=== PATIENT | female | born 1940 | race Caucasian/White ===

== ENCOUNTER 2017-06-19 11:28 | Inpatient (IN) | payer OTHER ==
[~2017-06-19] VITALS: Ht 157.5 cm; Wt 66.7 kg
--- NOTE | ~2017-06-19 | CATHLAB ---
[facility] [address] [place] [address] INVASIVE PROCEDURE REPORT Name: ADARSH KIM Room #: 219-P [facility] IN ..#: [id number] Admission: 06/19/17 Attend Phys: Deangelo Matias Discharge: Date of : 38 Date of Service: 06/20/172010 Report #: [id number] THIS REPORT FOR: //name// APPROVED REPORT Patient Details Patient Status: In-Patient Room #: The patient is a 76 year-old female Event Personnel Berlin Cao Food Taster, Eliazar Brumfield RN, Esperanza Griffith, Faith Claros RN Monitor Procedures Performed Left Heart Cath Coronaries, Bypass Grafts [id number] CCORCABG Art Access - R femoral artery* Hemostasis w/ Mynx Indication Non-STEMI , Chest pain Risk Factors Arterial Hypertension, Coronary Artery Disease Previous Procedures/Diagnoses Previous CABG Procedure Narrative The patient was brought electively to the Cardiac Catheterization Laboratory and was prepped and draped in a sterile manner. The Right Groin^ was infiltrated with 1% Lidocaine subcutaneous anesthesia. A PINNACLE 6FR Sheath #[id number] sheath was inserted into the right femoral artery. Coronary angiography was performed using coronary diagnostic catheters. The right coronary system was accessed and visualized with a 6FR JR 4 #[id number] catheter. The left coronary system was accessed and visualized with a 6FR JL4 #[id number] catheter. The left ventricle was accessed and visualized with a 6FR PIGTAIL 145 ANGLED #[id number] catheter. Left ventricular/Aortic Valve gradient assessed via catheter pullback. Left ventriculogram was performed in SMITH projection. Closure device was deployed with a 6 Fr Mynx. The patient tolerated the procedure well and there were no complications associated with the procedure. There was no hematoma. Fluoro Time: 4.30 minutes Dose: DAP 4332.60 cGycm2 449 mGy Contrast Type and Amount: Omnipaque 100 ml [facility] [place] [address] INVASIVE PROCEDURE REPORT Name: ADARSH KIM Room #: 219-P [facility] IN [facility]#: [id number] Admission: 06/19/17 Attend Phys: Deangelo Matias Discharge: Date of : 38 Date of Service: 06/20/172010 Report #: [id number] Coronary Angiography The patient's coronary anatomy is right dominant. [place] Artery Percent Stenosis Left Main: 70 % Prox LAD: 0 % Mid/Distal LAD: 0 % Circumflex: 0 % RCA: 0 % Ramus: %left main artery had an eccentric ostial 70% stenosis. LAD had no competitive flow from the SUNG graft. Grafts (Complete if Previous CABG=Yes: Percent Stenosis) SUNG graft appearred chronically occluded proximally. Free radial artery graft was widely patent to the marginal branch of the circumflex. Left Ventriculography The left ventricle is mildly dilated in size with contractility. The left ventricular ejection fraction is estimated to be 30-35%. Left ventricular wall motion abnormalities are present. There is no mitral insufficiency. Akinesis noted of the mid and distal anteior wall, distal inferior wall, and entire apex compatible with apical ballooning syndrome. Hemodynamics The aortic pressure is 109/68 mmHg with a mean of 86 mmHg. The left ventricular pressure is 120/20 mmHg with a mean of mmHg. The left ventricular end diastolic pressure is 37 mmHg. There was no gradient across the aortic valve upon pullback. Pullback from the left ventricle to the aorta revealed no gradient across the aortic valve. Conclusion 1. 70% stenosis of the left main artery. 2. 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 Patent free radial artery graft to the marginal branch of the circumflex 4. Ventriculogram consistent with apical ballooning syndrome Recommendations Aggressive Medical Therapy <ELECTRONICALLY SIGNED> By: Berlin Cao MD, FACC 06/20/172010 10 10 Berlin Cao MD, FACC /INF
--- NOTE | ~2017-06-19 | HC ---
[facility] [address] [place] [address] CONSULTATION Name: ADARSH KIM Room #: 219-P [facility] IN M.R.#: [id number] Admission: 06/19/17 Attend Phys: Deangelo Serna Discharge: Date of : 38 Report #: [id number] THIS REPORT FOR: //name// CC: Deangelo Whiting MD DATE OF SERVICE: 06/19/2017 HISTORY OF PRESENT ILLNESS: The patient is a 76-year-old single white female who I was asked to see in the hospital today after she complained of chest pain. The patient apparently presented in 2003 with chest pressure. She was found to have coronary artery disease involving the left main artery. She underwent 2-vessel bypass surgery here at [facility] including a SUNG graft to the LAD and a free left radial artery bypass graft to the circumflex artery. She has actually done well since that time. The patient stays fairly active doing aerobics. She was actually doing well until few weeks ago, she was at home, she felt a pressure chest and vomited. She called an EMS and was taken to the [facility]. She apparently ruled out for myocardial infarction. She apparently had a CT scan of the chest that was unremarkable. She actually saw my partner, Dr. Duarte in the clinic a week later. He recommended a nuclear stress test. Recently, she fatigued. Today, she showed up in my [facility] office for her stress test. While imaging, she felt a pressure chest, short of breath, and nauseated. She was given nitroglycerin. Paramedics were called. She was transferred by ambulance from my office to the emergency room here. She continued to have some chest pressure. She has had a recent bleeding, fever, cough, and blood in her stool. She denied any exertional dyspnea, palpitations, or syncope. I was asked to see her for further evaluation and treatment. PAST MEDICAL HISTORY: Significant for carpal tunnel surgery, cholecystectomy, hernia repair, hysterectomy, hypertension, and hyperlipidemia. No diabetes. MEDICATIONS: Consist of Fosamax, aspirin, Lipitor, Cardizem CD, hydrocodone for chronic knee pain, Imdur, metoprolol, and omeprazole. ALLERGIES: She has an allergy to SULFA and CODEINE. FAMILY HISTORY: Her mother had heart disease. SOCIAL HISTORY: She is , lives with a sister in [place], [place]. No smoking or alcohol abuse. REVIEW OF SYSTEMS: She has had no history of stroke. She did have a previous carotid Doppler study showing mild plaque formation. She has no history of asthma, peptic ulcer disease, liver disease, kidney disease, cancer, [place] [address] CONSULTATION Name: JUDYADARSH Rich Room #: 219-P [facility] IN M.R.#: [id number] Admission: 06/19/17 Attend Phys: Deangelo Serna Discharge: Date of : 38 Report #: [id number] psychiatric illness. PHYSICAL EXAMINATION: GENERAL: Revealed an elderly female, lying in bed. She appeared in no distress. VITAL SIGNS: She had a blood pressure of 140/70, pulse 60. She is afebrile. HEENT: She was anicteric, conjunctiva pink. Mucous membranes moist. NECK: Veins nondistended. No carotid bruits. Neck was supple. CHEST: Clear to auscultation. HEART: Regular rate and rhythm. ABDOMEN: Soft and nontender. EXTREMITIES: Had no edema. Dorsalis pedis pulse 2+ in the right, cannot be palpated on the left. SKIN: Cool and dry. NEUROLOGIC: Nonfocal. Her ECG showed a sinus rhythm with septal Q-waves, nonspecific ST-segment changes. Her workup in the emergency room today, she had a chest x-ray that showed tortuous aorta, hiatal hernia, otherwise clear lung maldonado. Her lab work, sodium 134, creatinine 0.9. Troponin was 0.89. White blood cell count 8.8, hemoglobin 15.1. IMPRESSION AND RECOMMENDATIONS: 1. Non-ST elevation myocardial infarction. Recommend cardiac catheterization. 2. Hypertension. The patient has been on a calcium melissa and beta melissa. 3. Hyperlipidemia. The patient is on a statin drug. 4. Chronic back pain. The patient takes narcotics. <ELECTRONICALLY SIGNED> By: Berlin Cao MD, FACC 06/20/17 0811 1726 0001 Berlin Cao MD, FACC /nt
--- NOTE | ~2017-06-19 | EKG ---
[place] [address] [facility] [place] [address] ELECTROCARDIOGRAM REPORT Name: ADARSH KIM Room #: 219-P AD[facility] IN M.R.#: [id number] Admission: 06/19/17 Attend Phys: Deangelo Serna Discharge: Date of : 38 Report #: [id number] THIS REPORT FOR: //name// [facility] ED Test Date: 2017-06-19 Test Time: 11:30:58 Pat Name: ADARSH KIM Department: Room: 219 Gender: F Program Writer: BLAKE : 1940 Requested By: Shey Huggins Order Number: [id number] MD: Matt Carr Measurements Intervals [place] Rate: 63 P: 20 WY: 173 QRS: 27 QRSD: 121 T: 29 QT: 432 QTc: 443 Interpretive Statements Sinus rhythm Nonspecific T wave abnormality Anteroseptal infarct, old Compared to ECG 01/30/2009 07:46:27 Septal Q waves are now present Nonspecific T wave abnormality is now noted Electronically Signed On 06-20-2017 7:48:45 CDT by Matt Carr [email or web address] <ELECTRONICALLY SIGNED> By: Matt Carr MD, [facility] 06/20/17 0748 1130 1130 Matt Carr MD, [facility] /EPI
[2017-06-19 11:31] VITALS: BP 152/101
[2017-06-19 11:44] LABS: ABSOLUTE NEUTROPHILS 5.1 thou/uL (1.4-8.2); BASOPHILS 0.5 % (0.0-2.0); EOSINOPHILS 6.4 % (0.0-3.0); HEMATOCRIT 43.8 % (37.0-47.0); HEMOGLOBIN 15.1 gm/dL (12.0-15.0); LYMPHOCYTES 26.6 % (24.0-44.0); MANUAL DIFF NO; MCH 33.2 pg (26.0-34.0); MCHC 34.6 g/dL (28.0-37.0); MONOCYTES 8.1 % (1.0-8.0); PLATELET COUNT 195 thou/uL (150-400); POLYS 58.4 % (36.0-66.0); RBC 4.56 mil/uL (4.20-5.00); RDW 13.5 % (10.5-14.5); WBC 8.8 thou/uL (4.0-11.0)
[2017-06-19 12:03] LABS: APTT 26.9 Seconds (24.5-32.8); INR 1.1; PROTIME 10.9 Seconds (9.3-11.4)
[2017-06-19 12:36] LABS: CREATININE 0.9 mg/dL (0.6-1.0); POTASSIUM 3.8 mmol/L (3.5-5.1)
[2017-06-19 12:50] LABS: TROPONIN-I 0.89 ng/mL (<0.04-0.07)
[2017-06-19 13:33] VITALS: BP 130/71
[2017-06-19 14:32] VITALS: BP 130/71
[2017-06-19 14:40] VITALS: BP 132/81
[2017-06-19] MEDS ORDERED: CARDIZEM CD240 MG PO (14:52)
[2017-06-19] MEDS ORDERED: LIPITOR10 MG PO (14:54)
[2017-06-19] MEDS ORDERED: OMEPRAZOLE40 MG PO (14:55)
[2017-06-19] MEDS ORDERED: ASPIR 8181 M1 PO (14:57)
[2017-06-19] MEDS ORDERED: IMDUR 30 MG TAB30 M1 PO (14:57)
[2017-06-19] MEDS ORDERED: LOPRESSOR50 PO (14:59)
[2017-06-19] MEDS ORDERED: FOSAMAX 70 MG T70 MG PO (14:59)
[2017-06-19] MEDS ORDERED: PROBIOTIC1 EAC1 PO (15:00)
[2017-06-19] MEDS ORDERED: VITAMINC500 PO (15:01)
[2017-06-19] MEDS ORDERED: VITAMIN D1000 UNI1 PO (15:05)
[2017-06-19] MEDS ORDERED: UNICOMPLEX M TA1 TA1 PO (15:05)
[2017-06-19] MEDS ORDERED: ZYRTEC 10 MG TA10 MG PO (15:07)
[2017-06-19] MEDS ORDERED: NITROGLYCERIN0.4 MG SUBLING (15:09)
[2017-06-19 21:23] VITALS: BP 127/84
[2017-06-20] VITALS (10 sets, daily range): BP systolic 93–107; BP diastolic 61–92
[2017-06-20 06:17] LABS: ALBUMIN 2.9 g/dL (3.4-5.0); ALKALINE PHOSPHATASE 61 U/L (46-116); ANION GAP 7 mmol/L (7-16); BUN 13 mg/dL (7-18); CALCIUM 8.2 mg/dL (8.5-10.1); CHLORIDE 106 mmol/L (98-107); CHOLESTEROL 133 mg/dL (<200); CO2 24 mmol/L (21-32); CREATININE 0.7 mg/dL (0.6-1.0); GLUCOSE 109 mg/dL (74-106); HDL CHOLESTEROL 52 mg/dL (>40); LDL CHOLESTEROL 63 mg/dL (<100); POTASSIUM 3.8 mmol/L (3.5-5.1); SGOT 47 U/L (15-37); SGPT 44 U/L (30-65); SODIUM 137 mmol/L (136-145); TC:HDL 2.6 Ratio (Not establshd); TOTAL BILIRUBIN 0.8 mg/dL (<0.1-1.0); TRIGLYCERIDE 92 mg/dL (<150); VLDL 18 mg/dL (<40)
[2017-06-20 06:25] LABS: SERUM ASSESSMENT Clear
[2017-06-21 04:30] VITALS: BP 90/50
[2017-06-21 08:00] VITALS: BP 109/62
[2017-06-21] MEDS ORDERED: CARVEDILOL3.125 MG PO (10:36)
[2017-06-21 11:40] VITALS: BP 109/62
[2017-06-21 12:00] VITALS: BP 120/76
== END 2017-06-21 13:00 | disposition home or self-care (01) | DRG 280 ==
LOC: ER 11:28 → 2N 13:13 → EROBS 13:13 → 2N 14:15 → ENTRNSPT 06-21 12:05 → EDTRNSPTSTS 06-21 12:11 → EDTRNSPT 06-21 12:41 → 2N 06-21 13:00
PROVIDERS: Emergency Medicine; Internal Medicine Cardiovascular Disease
PROC: 4A023N7 Measurement of Cardiac Sampling and Pressure, Left Heart, Percutaneous Approach (ICD-10-PCS; principal; 2017-06-20)
PROC: B21F1ZZ Fluoroscopy of Other Bypass Graft using Low Osmolar Contrast (ICD-10-PCS; principal; 2017-06-20)
PROC: B2151ZZ Fluoroscopy of Left Heart using Low Osmolar Contrast (ICD-10-PCS; principal; 2017-06-20)
PROC: B2111ZZ Fluoroscopy of Multiple Coronary Arteries using Low Osmolar Contrast (ICD-10-PCS; principal; 2017-06-20)
DX: I21.4 Non-ST elevation (NSTEMI) myocardial infarction (principal); I50.21 Acute systolic (congestive) heart failure; I42.8 Other cardiomyopathies; J45.909 Unspecified asthma, uncomplicated; I25.10 Atherosclerotic heart disease of native coronary artery without angina pectoris; I11.0 Hypertensive heart disease with heart failure; E78.5 Hyperlipidemia, unspecified; G89.29 Other chronic pain; M54.9 Dorsalgia, unspecified; K21.9 Gastro-esophageal reflux disease without esophagitis; Z79.82 Long term (current) use of aspirin; Z79.899 Other long term (current) drug therapy; Z90.711 Acquired absence of uterus with remaining cervical stump; Z90.49 Acquired absence of other specified parts of digestive tract; Z95.1 Presence of aortocoronary bypass graft; Z88.6 Allergy status to analgesic agent; Z88.8 Allergy status to other drugs, medicaments and biological substances; Z88.2 Allergy status to sulfonamides; Z82.49 Family history of ischemic heart disease and other diseases of the circulatory system
CPT/HCPCS: 10081